=== PATIENT | male | born 1975 | race Caucasian/White ===

== ENCOUNTER → 2016-06-14 | Day surgery (SDC) | payer BC ==
[~2016-06-14] VITALS: Ht 182.9 cm; Wt 73.5 kg
[~2016-06-14] MED LIST: BUPIVACAINE/EPIN 0.25% 30 ML VIAL As Ordered ONE; CLINDAMYCIN 600 MG in APPROPRIATE DILUENT 1 EA IV ONE; GLYCOPYRROLATE INJ 0.2 MG/ML 2 ML VIAL As Ordered ONE; KETOROLAC 60 MG/2 ML VIAL (J1885) As Ordered ONE; LIDOCAINE 2% INJ 100 MG/5 ML SDV (FOR ANES.) As Ordered ONE; LR 1,000 ML IV SCH; MIDAZOLAM INJ 2 MG/2 ML VIAL (J2250) As Ordered ONE; NABU750T PO; NEOSTIGMINE 1MG/ML 5 ML SYRINGE (J2710) As Ordered ONE; NORCO, ANEXSIA 5/325MG TABLET (HYDROcodone/ACETAMINOPHEN) As Ordered ONE; NORCO, ANEXSIA 5/325MG TABLET (HYDROcodone/ACETAMINOPHEN) PO PRN; ONDANSETRON 4MG/2ML VIAL (J2405) As Ordered ONE; ONDANSETRON 4MG/2ML VIAL (J2405) IV PRN; PROPOFOL 200 MG/20 ML VIAL As Ordered ONE; ROCURONIUM BROMIDE 50 MG/5 ML VIAL As Ordered ONE; fentaNYL 100 MCG/2 ML INJECTION (J3010) IV PRN; fentaNYL 250 MCG/5 ML INJECTION (J3010) As Ordered ONE
[2016-06-14 16:40] VITALS: BP 118/70
--- NOTE | 2016-06-15 09:24 | RO ---
DATE OF PROCEDURE: 06/14/2016 PREOPERATIVE DIAGNOSIS: Bilateral inguinal hernias. POSTOPERATIVE DIAGNOSIS: Bilateral inguinal hernias. PROCEDURE: Laparoscopic bilateral inguinal hernia repair. SURGEON: Dr. Daquan Bull SVP DIGITAL AD SALES: Dr. Shaw ANESTHESIA: General. ESTIMATED BLOOD LOSS: 5. COMPLICATIONS: None. INDICATIONS FOR PROCEDURE: The patient is a 41-year-old male who presents to me with complaints of left groin pain. However on exam, he had easily identifiable bilateral inguinal hernias that were both reducible. Recommendation was to proceed with laparoscopic bilateral inguinal hernia repair. The risks and benefits of the procedure were discussed in detail with the patient. Informed consent was obtained. PROCEDURE: The patient brought back to operating room three after sufficient sedation and the abdomen was sterilely prepped and draped. A Morrison catheter was placed. Next, a time-out was done to confirm proper patient and proper procedure. Following that, a 2 cm infraumbilical incision was made. The incision carried down to the level of the fascia. The fascia was opened just to the right midline under direct visualization. The preperitoneal space was entered and balloon dissector was placed. After balloon dissection, balloon dissector was removed, and a 10 mm balloon port was placed. The preperitoneal space was insufflated to 15 mmHg. Two more 5 mm ports were placed in the midline in between the umbilicus and the pubic symphysis. Starting on the left side, the hernia sac was identified. It is an indirect inguinal hernia. This was carefully elevated and dissected free from the cord structures, both posteriorly and laterally. Once this was completed, dissection was done and the same process was done on the right side with another indirect inguinal hernia. Once the peritoneum was dissected free, on both sides, starting with the right, a large 3DMax Bard mesh was placed inside the preperitoneal space, unrolled laterally, tacked to the midline and pubic symphysis using a Pro tacker. The hernia sac was placed on top of the mesh. The same process was done on the left. Once both meshes were tacked to the midline and laid in place, the preperitoneal space was slowly desufflated under direct visualization to make sure that the peritoneum stayed above the mesh. Once this was completed, the ports were removed. The fascia at the umbilical port site was closed with a [id number] #0 Vicryl suture. Skin incision closed with #4-0 Vicryl subcuticular sutures. The abdomen was cleaned and dried. Steri-Strips, 4x4 and tape were applied, thus ending the procedure.
== END | disposition home or self-care (01) ==
LOC: M SDC 12:03
PROVIDERS: ATTEND Surgery
DX: K40.20 Bilateral inguinal hernia, without obstruction or gangrene, not specified as recurrent (principal); M51.26 Other intervertebral disc displacement, lumbar region; F17.290 Nicotine dependence, other tobacco product, uncomplicated; Z88.1 Allergy status to other antibiotic agents; Z79.899 Other long term (current) drug therapy
CPT/HCPCS: 49650; C1781; J1885; J2250; J2405; J2710; J3010

== ENCOUNTER 2017-09-30 04:17 | Emergency (ER) | payer BC ==
[2017-09-30] MEDS: diazePAM 5 MG TAB PO (07:37)
[2017-09-30] MEDS: methylPREDNISolone INJ 125 MG/2 ML VIAL (J2930) IM (07:37)
[2017-09-30] MEDS: KETOROLAC TROMETHAMINE 10 MG TAB PO (08:15)
== END 2017-09-30 08:51 | disposition home or self-care (01) ==
LOC: M ED 04:17
DX: S39.012A Strain of muscle, fascia and tendon of lower back, initial encounter (principal); S29.012A Strain of muscle and tendon of back wall of thorax, initial encounter; X58.XXXA Exposure to other specified factors, initial encounter; Y92.814 Boat as the place of occurrence of the external cause; F17.200 Nicotine dependence, unspecified, uncomplicated; Z88.1 Allergy status to other antibiotic agents; Z79.1 Long term (current) use of non-steroidal anti-inflammatories (NSAID)
CPT/HCPCS: J2930

== ENCOUNTER 2017-10-09 14:22 | Emergency (ER) | payer BC ==
[2017-10-09] MEDS: PERCOCET 5MG/325MG TAB PO (17:54)
[2017-10-09] MEDS: CYCLOBENZAPRINE 10 MG TAB PO (17:55)
[2017-10-09] MEDS: IBUPROFEN 600 MG TAB PO (17:55)
== END 2017-10-09 18:32 | disposition home or self-care (01) ==
LOC: M ED 14:22
DX: M54.12 Radiculopathy, cervical region (principal); M54.16 Radiculopathy, lumbar region; M54.14 Radiculopathy, thoracic region; G89.29 Other chronic pain; M54.9 Dorsalgia, unspecified; M51.26 Other intervertebral disc displacement, lumbar region; Z79.899 Other long term (current) drug therapy; Z88.5 Allergy status to narcotic agent; Z88.1 Allergy status to other antibiotic agents
CPT/HCPCS: 99283

== ENCOUNTER 2017-10-15 13:23 | Emergency (ER) | payer BC ==
[2017-10-15] MEDS: METHOCARBAMOL 500 MG TAB PO (15:59)
[2017-10-15] MEDS: PERCOCET 5MG/325MG TAB PO (16:00)
== END 2017-10-15 16:10 | disposition home or self-care (01) ==
LOC: M ED 13:23
DX: M54.13 Radiculopathy, cervicothoracic region (principal); M54.14 Radiculopathy, thoracic region; Z88.1 Allergy status to other antibiotic agents
CPT/HCPCS: 99283

== ENCOUNTER 2017-10-18 16:47 | Emergency (ER) | payer BC ==
[2017-10-18] MEDS: LORazepam 2 MG/ML VIAL (J2060) IV (18:25)
[2017-10-18] MEDS: KETOROLAC 30 MG/ML VIAL (J1885) IV (18:25)
[2017-10-18] MEDS: methylPREDNISolone INJ 125 MG/2 ML VIAL (J2930) IV (23:00)
== END 2017-10-18 23:13 | disposition home or self-care (01) ==
LOC: M ED 16:47
DX: M51.26 Other intervertebral disc displacement, lumbar region (principal); Z88.1 Allergy status to other antibiotic agents; Z88.5 Allergy status to narcotic agent
CPT/HCPCS: J1885

== ENCOUNTER → 2017-11-15 | Outpatient (REF) | payer BC ==
[2017-11-15 15:55] LABS: BASO % 0.3 % (0.0-1.0); EOS # 0.1 10^3/uL (0.0-0.50); EOS % 0.8 % (0.0-3.0); HEMATOCRIT 47.7 % (42.0-52.0); HEMOGLOBIN 16.3 g/dl (13.5-17.5); IMMATURE GRANULOCYTE % 0.5 % (0-3.0); LYMPH # 1.5 10^3/uL (1.5-4.5); LYMPH % 19.7 % (24.0-44.0); MEAN CORPUSCULAR HEMOGLOBIN 32.9 pg (27.0-33.0); MEAN CORPUSCULAR HGB CONC 34.2 g/dl (32.0-36.5); MEAN CORPUSCULAR VOLUME 96.2 fl (80.0-96.0); MONO # 0.5 10^3/uL (0.0-0.8); MONO % 6.4 % (0.0-5.0); NEUTROPHILS # 5.7 10^3/uL (1.8-7.7); NEUTROPHILS % 72.3 % (36.0-66.0); PLATELET COUNT, AUTOMATED 231 10^3/uL (150-450); RED BLOOD COUNT 4.96 10^6/uL (4.30-6.10); RED CELL DISTRIBUTION WIDTH 12.5 % (11.5-14.5); WHITE BLOOD COUNT 7.8 10^3/uL (4.0-10.0)
[2017-11-15 16:13] LABS: C REACTIVE PROTEIN QUANTITATIV < 0.30 MG/DL (0.00-0.30); RHEUMATOID FACTOR QUANT < 10.0 IU/ML (<15.0)
[2017-11-15 16:13] LABS: URIC ACID 4.8 MG/DL (3.5-7.2)
[2017-11-15 16:35] LABS: ERYTHROCYTE SEDIMENTATION RATE 1 mm/hr (0-15)
[2017-11-23 10:18] LABS: ANTINUCLEAR ANTIBODIES DIRECT Negative (Negative); HLA-B27 Negative (.); Lyme Disease IgG/IgM Antibodie <0.91 ISR (0.00-0.90); Lyme Disease IgM Ab Quantitati <0.80 index (0.00-0.79)
== END ==
LOC: M LABDRAW1 13:05
DX: M50.30 Other cervical disc degeneration, unspecified cervical region (principal)
CPT/HCPCS: 84550

== ENCOUNTER 2017-12-18 20:10 | Inpatient (IN) | payer BC, SELFPAY ==
[2017-12-18 20:45] LABS: HEMATOCRIT 47.1 % (42.0-52.0); HEMOGLOBIN 16.3 g/dl (13.5-17.5); MEAN CORPUSCULAR HEMOGLOBIN 32.3 pg (27.0-33.0); MEAN CORPUSCULAR HGB CONC 34.6 g/dl (32.0-36.5); MEAN CORPUSCULAR VOLUME 93.3 fl (80.0-96.0); PLATELET COUNT, AUTOMATED 240 10^3/uL (150-450); RED BLOOD COUNT 5.05 10^6/uL (4.30-6.10); RED CELL DISTRIBUTION WIDTH 12.3 % (11.5-14.5); WHITE BLOOD COUNT 8.1 10^3/uL (4.0-10.0)
[2017-12-18 21:09] LABS: AMPHETAMINES LEVEL URINE NEGATIVE (NEGATIVE); BARBITURATES URINE NEGATIVE (NEGATIVE); BENZODIAZEPINES URINE NEGATIVE (NEGATIVE); CANNABINOIDS URINE NEGATIVE (NEGATIVE); COCAINE METABOLITE URINE NEGATIVE (NEGATIVE); METHADONE URINE NEGATIVE (NEGATIVE); OPIATES URINE NEGATIVE (NEGATIVE); PHENCYCLIDINE URINE NEGATIVE (NEGATIVE)
[2017-12-18 21:16] LABS: ACETAMINOPHEN LEVEL < 2.0 UG/ML (10.0-30.0); ALBUMIN 4.1 GM/DL (3.2-5.2); ALBUMIN/GLOBULIN RATIO 1.24 (1.00-1.93); ALKALINE PHOSPHATASE 72 U/L (45-117); ALT/SGPT 27 U/L (12-78); ANION GAP 11 MEQ/L (8-16); AST/SGOT 20 U/L (7-37); BILIRUBIN,DIRECT < 0.1 MG/DL (0.0-0.2); BILIRUBIN,TOTAL 0.3 MG/DL (0.2-1.0); BLOOD UREA NITROGEN 7 MG/DL (7-18); CALCIUM LEVEL 8.7 MG/DL (8.5-10.1); CARBON DIOXIDE LEVEL 24 MEQ/L (21-32); CHLORIDE LEVEL 104 MEQ/L (98-107); CREATININE FOR GFR 0.89 MG/DL (0.70-1.30); ETHYL ALCOHOL (ETHANOL) 0.232 % (0.000-0.010); GLOMERULAR FILTRATION RATE > 60.0 (>60); GLUCOSE, FASTING 91 MG/DL (70-100); SALICYLATE LEVEL 5.3 MG/DL (5.0-30.0); SODIUM LEVEL 139 MEQ/L (136-145); TOTAL PROTEIN 7.4 GM/DL (6.4-8.2)
[2017-12-18] MEDS ORDERED: MAALOX 30 ML SUSP *UDC PO (23:45)
[2017-12-18] MEDS ORDERED: LORazepam 2 MG TAB PO (23:45)
[2017-12-18] MEDS ORDERED: MOM 30ML SUSPENSION UDC PO (23:45)
[2017-12-19] MEDS: FOLIC ACID 1 MG TAB PO (08:45)
[2017-12-19] MEDS: ACETAMINOPHEN TAB 650MG DOSE (2X325MG) PO ×2 (08:45→20:37)
[2017-12-19] MEDS: THIAMINE 100 MG TAB PO ×2 (08:45→20:36)
[2017-12-19] MEDS: MULTIVITAMINS/MINERALS THERAP 1 TAB PO (08:45)
[2017-12-19] MEDS: NICOTINE 21MG/24HR 1 EA TRANSDERMAL TD (08:46)
[2017-12-19] MEDS ORDERED: CYCLOBENZAPRINE 5MG TABLET PO (17:00)
[2017-12-19] MEDS: IBUPROFEN 800 MG TAB PO (17:57)
[2017-12-19] MEDS: GABAPENTIN 300 MG CAP PO (20:35)
[2017-12-19] MEDS: traZODone 50 MG TAB PO (20:35)
[2017-12-20] MEDS: GABAPENTIN 300 MG CAP PO ×2 (08:42→15:18)
[2017-12-20] MEDS: THIAMINE 100 MG TAB PO (08:42)
[2017-12-20] MEDS: MULTIVITAMINS/MINERALS THERAP 1 TAB PO (08:42)
[2017-12-20] MEDS: FOLIC ACID 1 MG TAB PO (08:43)
[2017-12-20] MEDS: NICOTINE 21MG/24HR 1 EA TRANSDERMAL TD (08:43)
== END 2017-12-20 14:40 | disposition home or self-care (01) | DRG 754 ==
LOC: M PSY 12-19 04:19 → M ED 20:10 → M ED INP 23:43
DX: F32.9 Major depressive disorder, single episode, unspecified (principal); M51.36 Other intervertebral disc degeneration, lumbar region; M47.896 Other spondylosis, lumbar region; F10.10 Alcohol abuse, uncomplicated; Z79.899 Other long term (current) drug therapy; Z88.5 Allergy status to narcotic agent; Z88.8 Allergy status to other drugs, medicaments and biological substances; F17.210 Nicotine dependence, cigarettes, uncomplicated

== ENCOUNTER → 2018-01-29 | Outpatient (REF) | payer BC ==
[2018-01-30 12:17] LABS: ANION GAP 5 MEQ/L (8-16); BLOOD UREA NITROGEN 19 MG/DL (7-18); CALCIUM LEVEL 9.2 MG/DL (8.5-10.1); CARBON DIOXIDE LEVEL 33 MEQ/L (21-32); CHLORIDE LEVEL 103 MEQ/L (98-107); CREATININE FOR GFR 1.01 MG/DL (0.70-1.30); GLOMERULAR FILTRATION RATE > 60.0 (>60); GLUCOSE, FASTING 93 MG/DL (70-100); POTASSIUM SERUM 4.3 MEQ/L (3.5-5.1); SODIUM LEVEL 141 MEQ/L (136-145)
== END ==
LOC: M SFHCPLAZ 11:57
DX: R00.2 Palpitations (principal)
CPT/HCPCS: 84443

== ENCOUNTER → 2018-09-27 | Outpatient (CLI) | payer OTHER ==
[~2018-09-27] MED LIST changes: -BUPIVACAINE/EPIN 0.25% 30 ML VIAL As Ordered ONE; -CLINDAMYCIN 600 MG in APPROPRIATE DILUENT 1 EA IV ONE; +CYCL10TA PO; +CYCL5TAB PO; +GABA-843 PO; -GLYCOPYRROLATE INJ 0.2 MG/ML 2 ML VIAL As Ordered ONE; +IBUP-1022 PO; +IBUP1TAB7 PO; +IBUP80TA PO; +IBUPOTC PO; -KETOROLAC 60 MG/2 ML VIAL (J1885) As Ordered ONE; -LIDOCAINE 2% INJ 100 MG/5 ML SDV (FOR ANES.) As Ordered ONE; -LR 1,000 ML IV SCH; +METH75TA; +METH75TA PO; -MIDAZOLAM INJ 2 MG/2 ML VIAL (J2250) As Ordered ONE; +NABU-119 PO; -NABU750T PO; -NEOSTIGMINE 1MG/ML 5 ML SYRINGE (J2710) As Ordered ONE; -NORCO, ANEXSIA 5/325MG TABLET (HYDROcodone/ACETAMINOPHEN) As Ordered ONE; -NORCO, ANEXSIA 5/325MG TABLET (HYDROcodone/ACETAMINOPHEN) PO PRN; +OMEP20CA3 PO; -ONDANSETRON 4MG/2ML VIAL (J2405) As Ordered ONE; -ONDANSETRON 4MG/2ML VIAL (J2405) IV PRN; +PERC5TAB12 PO; +PRED20TA PO; -PROPOFOL 200 MG/20 ML VIAL As Ordered ONE; +ROBA500T PO; -ROCURONIUM BROMIDE 50 MG/5 ML VIAL As Ordered ONE; +VALI5TAB PO; -fentaNYL 100 MCG/2 ML INJECTION (J3010) IV PRN; -fentaNYL 250 MCG/5 ML INJECTION (J3010) As Ordered ONE
--- NOTE | 2018-09-27 12:51 | REP ---
Clinical: thoracic pain. Technique: AP and lateral views of the thoracic spine. Findings: Alignment and kyphosis is maintained. Vertebral bodies intact. No acute fracture / compression injury or subluxation. No degenerative changes. Paravertebral soft tissues are normal. Impression: Normal thoracic spine series. Electronically Signed by Merlin Gibson MD 09/27/2018 12:42 P
--- NOTE | 2018-09-27 12:52 | REP ---
Clinical: Lower back pain and radiculopathy. Technique: AP and lateral views of the lumbar spine. Findings: Alignment and lordosis is maintained. The vertebral bodies including transverse process and spinous processes are intact and normal for age. There is no evidence for acute fracture / compression injury or subluxation. No significant degenerative change is noted. Impression: Age-appropriate examination. No obvious significant degenerative changes. Electronically Signed by Merlin Gibson MD 09/27/2018 12:44 P
--- NOTE | 2018-09-27 12:53 | REP ---
Clinical: Neck pain. Radiculopathy. Technique: AP, lateral, swimmers views of the cervical spine. Findings: Alignment and lordosis maintained. Vertebral bodies are intact. Disc spaces are normal for age. No significant degenerative changes. Impression: Normal, age-appropriate cervical spine radiographs. Electronically Signed by Merlin Gibson MD 09/27/2018 12:45 P
== END ==
LOC: M RAD 11:53
PROVIDERS: ATTEND Chiropractor
DX: M54.41 Lumbago with sciatica, right side (principal); M99.03 Segmental and somatic dysfunction of lumbar region; M50.33 Other cervical disc degeneration, cervicothoracic region; M99.01 Segmental and somatic dysfunction of cervical region

== ENCOUNTER 2019-05-08 22:25 | Emergency (ER) | payer OTHER ==
[~2019-05-08] VITALS: Ht 180.3 cm; Wt 88.0 kg
[~2019-05-08 22:25] MED LIST changes: +METH750T2; +METH750T2 PO; -METH75TA; -METH75TA PO; +OMEP1CAP73 PO; -OMEP20CA3 PO
[2019-05-08] MEDS ORDERED: METH20TA29 (22:45)
[2019-05-08] MEDS ORDERED: LITH300T2 (22:45)
[2019-05-08] MEDS ORDERED: HYDR-3363 (22:45)
[2019-05-08] MEDS ORDERED: DULO1CAP5 (22:45)
[2019-05-09 00:04] VITALS: BP 150/90
== END 2019-05-09 00:14 | disposition home or self-care (01) ==
LOC: M ED 22:25
DX: F33.9 Major depressive disorder, recurrent, unspecified (principal); G89.29 Other chronic pain; M54.9 Dorsalgia, unspecified; Z79.899 Other long term (current) drug therapy; Z88.1 Allergy status to other antibiotic agents; Z88.5 Allergy status to narcotic agent; F17.210 Nicotine dependence, cigarettes, uncomplicated

== ENCOUNTER → 2019-08-27 | Outpatient (REF) | payer OTHER ==
[~2019-08-27] MED LIST changes: +CYCL-707 PO; -CYCL10TA PO; +DULO1CAP5; +HYDR-3363; +LITH300T2; +METH20TA29
[2019-08-28 12:00] LABS: CHOLESTEROL RISK RATIO 7.128 (<5)
[2019-08-28 12:50] LABS: HEMOGLOBIN A1c 4.9 %
== END ==
LOC: M SFHCPLAZ 15:30
PROVIDERS: ATTEND Family Medicine
DX: Z13.1 Encounter for screening for diabetes mellitus (principal); Z13.6 Encounter for screening for cardiovascular disorders

== ENCOUNTER 2019-12-17 19:53 | Emergency (ER) | payer OTHER ==
[~2019-12-17] VITALS: Ht 180.3 cm; Wt 93.2 kg
[2019-12-17 19:53] VITALS: BP 165/87
[~2019-12-17 19:53] MED LIST changes: -NABU-119 PO; +NABU-53 PO
[2019-12-17] MEDS ORDERED: CYCL-707 (20:02)
[2019-12-17] MEDS ORDERED: BUPR300T92 (20:02)
[2019-12-17] MEDS ORDERED: HYDR50TA70 (20:02)
[2019-12-17] MEDS ORDERED: OMEP-221 (20:02)
[2019-12-17] MEDS ORDERED: AMIT50TA (20:02)
[2019-12-17] MEDS ORDERED: KETOROLAC 60MG 2ML VIAL IM ONE (22:15)
[2019-12-17] MEDS ORDERED: diazePAM 10MG/2ML SYRINGE (J3360 PER 5MG) IM ONE (22:15)
== END 2019-12-17 23:04 | disposition home or self-care (01) ==
LOC: M ED 19:53
DX: G89.29 Other chronic pain (principal); M54.9 Dorsalgia, unspecified; K21.9 Gastro-esophageal reflux disease without esophagitis; F17.200 Nicotine dependence, unspecified, uncomplicated; Z88.6 Allergy status to analgesic agent; Z88.8 Allergy status to other drugs, medicaments and biological substances; Z79.899 Other long term (current) drug therapy
CPT/HCPCS: 96372; 99282; J1885; J3360